=== PATIENT | female | born 1995 | race Caucasian/White ===

== ENCOUNTER 2023-10-30 16:53 | Emergency (ER) | payer BC ==
[2023-10-30] MEDS: Ketorolac 30 MG/ML SDV IM ONE (17:28)
[2023-10-30 17:58] LABS: BASOPHILS ABSOLUTE AUTO 0.02 10^3/uL (0.00-0.50); BASOPHILS PERCENT AUTO 0.2 % (0-1); EOSINOPHILS ABSOLUTE AUTO 0.17 10^3/uL (0.00-1.50); EOSINOPHILS PERCENT AUTO 1.8 % (0-6); HEMATOCRIT 40.3 % (37.0-47.0); HEMOGLOBIN 13.8 g/dL (12.0-16.0); IMMATURE GRAN ABSOLUTE AUTO 0.01 10^3/uL (0.00-0.49); IMMATURE GRAN PERCENT AUTO 0.1 % (0.0-4.9); LYMPHOCYTES PERCENT AUTO 9.6 % (24-44); MEAN CORPUSCULAR HEMOGLOBIN 30.7 pg (27.0-32.0); MEAN CORPUSCULAR HGB CONC 34.2 g/dL (32.0-36.0); MEAN CORPUSCULAR VOLUME 89.6 fL (83.0-97.0); MONOCYTES ABSOLUTE AUTO 0.47 10^3/uL (0.00-1.50); NEUTROPHILS ABSOLUTE AUTO 7.79 x10^3/uL (1.80-8.00); NEUTROPHILS PERCENT AUTO 83.3 % (41-71); PLATELET COUNT,PLT 238 10^3/uL (150-400); WHITE BLOOD CELL COUNT,WBC 9.4 10^3/uL (4.0-11.0)
[2023-10-30] MEDS: HYDROmorphone 1 MG/ML Syringe IVPUSH ONE (17:59)
[2023-10-30] MEDS: Ondansetron 4 MG/2 ML SDV IVPUSH ONE (17:59)
[2023-10-30] MEDS: Methylergonovine 0.2 MG/1 ML Amp IM PRN (18:38)
[2023-10-30] MEDS: Sodium Chloride 0.9% 1,000 ML IV ONE (18:49)
== END 2023-10-30 19:49 | disposition critical access hospital (66) ==
LOC: CC.ED 16:53
DX: O20.9 Hemorrhage in early pregnancy, unspecified (principal); Z3A.00 Weeks of gestation of pregnancy not specified
CPT/HCPCS: 36415; 85025; 96372; 96374; 96375; 99284; 99285-25; J1170; J1885; J2210; J2405; J7030

== ENCOUNTER 2024-03-24 01:50 | Emergency (ER) | payer BC ==
[2024-03-24 02:32] LABS: HEMATOCRIT 39.9 % (37.0-47.0); HEMOGLOBIN 13.5 g/dL (12.0-16.0); MEAN CORPUSCULAR HEMOGLOBIN 30.2 pg (27.0-32.0); MEAN CORPUSCULAR HGB CONC 33.8 g/dL (32.0-36.0); MEAN CORPUSCULAR VOLUME 89.3 fL (83.0-97.0); PLATELET COUNT,PLT 227 10^3/uL (150-400); RED BLOOD CELL COUNT 4.47 x10^6/uL (4.00-5.50); WHITE BLOOD CELL COUNT,WBC 9.2 10^3/uL (4.0-11.0)
[2024-03-24 02:37] LABS: APPEARANCE,URINE CLEAR (CLEAR); BILIRUBIN,URINE NEGATIVE (NEGATIVE); COLOR,URINE YELLOW (YELLOW); GLUCOSE,URINE NEGATIVE (NEGATIVE); KETONES,URINE NEGATIVE (NEGATIVE); LEUKOCYTE ESTERASE,URINE NEGATIVE (NEGATIVE); NITRITE,URINE NEGATIVE (NEGATIVE); OCCULT BLOOD,URINE NEGATIVE (NEGATIVE); PROTEIN,URINE TRACE mg/dL (NEGATIVE); UROBILINOGEN,URINE 0.2 EU/dL (0.2-1.0)
[2024-03-24] MEDS: Sodium Chloride 0.9% 1,000 ML IV ONE (02:37)
[2024-03-24 02:42] LABS: ALANINE AMINOTRANSFERASE,ALT 20 U/L (12-78); ALBUMIN 3.4 g/dL (3.4-5.0); ALKALINE PHOSPHATASE 60 U/L (46-116); ASPARTATE AMNIOTRANSFERASE,AST 22 U/L (15-37); BILIRUBIN TOTAL 0.2 mg/dL (0.0-1.0); BLOOD UREA NITROGEN,BUN 16 mg/dL (7-18); CALCIUM 8.7 mg/dL (8.4-10.1); CARBON DIOXIDE,CO2 24 mmol/L (21-32); CHLORIDE,CL 104 mEq/L (98-106); CREATININE 0.9 mg/dL (0.6-1.0); EST CRCL DRUG DOSING (CG) 71.91 mL/min; GLUCOSE RANDOM 96 mg/dL (75-99); POTASSIUM,K 3.7 mEq/L (3.5-5.0); PROTEIN TOTAL,TP 6.9 g/dL (6.4-8.2); SODIUM,NA 140 mEq/L (136-145)
[2024-03-24 02:47] LABS: BACTERIA,URINE FEW /HPF (NOT SEEN); EPITHELIAL CELLS,URINE FEW /HPF (NOT SEEN); MUCUS,URINE FEW /HPF (NOT SEEN); RBC,URINE NOT SEEN /HPF (0-5); WBC,URINE 0-5 /HPF (0-5)
[2024-03-24 02:50] LABS: C-REACTIVE PROTEIN < 0.50 mg/dL (<=0.50); ESTIMATED GFR 89 mL/min (>=60)
[2024-03-24 02:52] LABS: EOSINOPHILS ABSOLUTE MAN 2.39 10^3/uL (0.00-0.45); EOSINOPHILS PERCENT MAN 26 % (0-5); LYMPHOCYTES ABSOLUTE MAN 2.21 10^3/uL (1.00-4.80); LYMPHOCYTES PERCENT MAN 24 % (21-55); MONOCYTES ABSOLUTE MAN 0.46 10^3/uL (0.00-0.80); MONOCYTES PERCENT MAN 5 % (2-12); NEUTROPHILS ABSOLUTE MAN 4.14 10^3/uL (1.80-7.00); SEG NEUTROPHILS PERCENT MAN 45 % (35-85)
== END 2024-03-24 03:40 | disposition home or self-care (01) ==
LOC: CC.ED 01:50
DX: R55 Syncope and collapse (principal)
CPT/HCPCS: 36415; 80053; 81001; 81025; 85025; 86140; 93005; 96360; 99285; J7030